=== PATIENT | female | born 1955 | race Caucasian/White ===

== ENCOUNTER 2017-12-31 08:12 | Emergency (ER) | payer BC, SELFPAY ==
[2017-12-31 08:17] VITALS: BP 134/74; PULSE 75; RESP 16; TEMP 36.8; O2SAT 97
--- NOTE | 2017-12-31 08:58 | W.ED.GENAD ---
Discharge Plan Disposition Patient Disposition: HOME Condition: Stable Discharge Details Chief Complaint: Nk/Back Pain Clinical Impression: Acute flank pain, Constipation Reason For Visit: FELICIANO Primary Care Provider: Fredo Alejandro ED Provider: Katarina Sanders Home Meds and New Rx's Prescriptions: Continue amitriptyline 50 MG tablet 50 mg PO DAILY Qty: 90 RF: 4 Discharge Instructions Additional Instructions: Please return to the emergency department if you develop any new or worsening symptoms or if you become otherwise concerned. It is extremely important that you make an appointment to be seen in follow-up this visit by her primary care doctor within the next 1-2 weeks. Referrals: Fredo Alejandro MD [Primary Care Provider] - Discharge Data Discharge Date/Time-TO BE ENTERED AT DEPARTURE: 12/31/17 13:38 Medical Decision Making Rodney Amaro is a 62 y/o woman with history of anxiety and no other major medical problems presenting to the emergency department with right-sided flank pain radiating into the right lower abdomen since yesterday, history of two-week constipation until taking medication last night after which she had a bowel movement that did not alleviate pain. On exam patient is well and nontoxic appearing. She is nontender over the right flank in the reported area of pain, but does have mild tenderness in the right inguinal area. Exam is otherwise unremarkable. Concern for possible ileus versus obstruction versus UTI versus stone versus other. Exam/history not consistent with appendicitis, sepsis. It is allergic to IV dye. Plan for screening labs, IV fluid hydration, CT of the abdomen pelvis with barium oral contrast. Patient declines pain medication at this time. CT okay. Patient reports that she had a small bowel movement that was light brown in color with a streak of bright red blood. Patient reports that she occasionally has had the same in the past with bowel movements. Suspect secondary to hemorrhoids. I do not suspect significant GI bleed at this time. Unclear etiology of pain at this time, however patient reports pain resolved at this point she feels well and ready to go home. Lengthy discussion with patient regarding return to emergency department precautions and importance of outpatient follow-up with her PCP. She is amenable to the plan. Medical Records Medical records reviewed: Yes I reviewed the patient's medical records. Imaging Data Radiologic Study: Attestation: I personally reviewed and interpreted this imaging study as follows: Radiologist's impression: ABDOMINAL AND PELVIC CT: CT examination of the abdomen and pelvis was performed with oral contrast only due to the patient's reported contrast allergy. Images obtained through the lung bases are unremarkable. Liver and spleen appear normal by noncontrast criteria, as does the pancreas. Gallbladder and bile ducts are CT normal. Adrenals and kidneys are unremarkable in appearance with no evidence of urinary tract calcification or obstruction. No significant abdominal wall hernia seen. No abdominal or pelvic adenopathy seen. Appendix appears normal. No evidence of diverticulitis. There is ingested contrast throughout the bowel to the level of the distal descending colon. FILM PROCESSOR structures appear intact by CT criteria. CONCLUSION: Negative abdominal and pelvic CT. Lab Data Lab results reviewed: Yes I reviewed the patient's lab results. HPI General Mode of arrival: EMS. Date/Time Provider Initiated Documentation: 12/31/17 08:53. Limitations to Documentation: no limitations. Information obtained by: patient, family, RN notes reviewed and old records reviewed. HPI Narrative: Rodney Amaro is a 62-year-old woman with history of anxiety and constipation presenting to the emergency department with right-sided flank pain. Patient reports that yesterday she developed sharp pain in her right lower back/flank. She has had this pain of same location and quality many times in the past, and see if she associates it with constipation. She took Ex-Lax last night and had 2 large bowel movements. Patient reports that her pain however, has been unchanged, which is not typical for her. This type of pain is usually resolved after having a bowel movement. Patient reports that she had not had a bowel movement in 2 weeks prior to taking meds last night. This is not unusual for her. Patient reports that pain is 6 out of 10, and radiates from the right flank into the right lower abdomen. Pain is much worse with movement. She denies having any other pain. She denies fevers, vomiting, shortness of breath, cough, numbness/tingling/weakness. 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 No history of abdominal surgery or obstruction. Previously in her usual state of health. No trauma. Related Data Home Medications Medication Instructions Recorded Confirmed amitriptyline 50 mg PO DAILY #90 tab 04/06/17 12/31/17 Previous Rx's Medication Instructions Recorded amitriptyline 50 mg PO DAILY #90 tab 04/06/17 Allergies Allergy/AdvReac Type Severity Reaction Status Date / Time acetaminophen [From Tylenol] AdvReac Severe liver Unverified 12/31/17 08:21 issues IV DYE Allergy Severe Swelling/Ed Uncoded 12/31/17 08:21 aleah General Stated Complaint: Nk/Back Pain ROSSY: 3 Review of Systems Review of Systems Constitutional: denies fevers Eyes: denies eye pain ENT: denies facial pain, dental pain, sore throat Cardiovascular: denies chest pain, edema Respiratory: denies SOB, cough GI: reports abdominal pain, constipation, denies vomiting, diarrhea : reports flank pain, dysuria, frequency, urinary hesitancy MSK: denies back pain, neck pain, arthralgias, myalgias Skin: denies rash Neuro: denies headaches, lightheadedness, weakness PFSH Family History Mother Diabetes Neoplasm Father Diabetes Heart disease Hyperlipidemia Brother Diabetes Grandfather Diabetes Neoplasm Grandfather Neoplasm Grandmother Heart disease Grandmother No problems noted. Son Depression Daughter Depression Medical History Insomnia Migraine with aura Panic disorder Social History Smoking/Tobacco Use Status: Never Surgical History Appendectomy Bunionectomy (07/21/15) Colonoscopy - IV Sedation (08/30/15) Exam Narrative Exam Narrative: Constitutional: well and [id number], pleasant, conversing normally HENT: head atraumatic, normocephalic normal inspection, mucous membranes moist Eyes: conjunctiva normal, sclera normal, pupils 3mm b/l Neck: no stridor, normal ROM, trachea midline Chest: normal inspection Resp: normal work of breathing, LCTAB Cardio: normal rate, normal rhythm, no murmur appreciated GI: abdomen soft, non-distended, right lower quadrant TTP diffusely, neg McBPt TTP, no rebound or guarding, negative CVA tenderness b/l Back: normal inspection, no rash Skin: warm, dry, normal color, no rash Neuro: alert, not altered, grossly non-focal, normal tone Ext: no edema Psych: normal mood, normal affect, normal behavior Course Vital Signs Temperature 36.8 C 12/31/17 08:17 Pulse 75 12/31/17 08:17 Respiratory Rate 16 12/31/17 08:17 Blood Pressure 134/74 12/31/17 08:17 Pulse Oximetry 97 12/31/17 08:17 Temperature 36.8 C 12/31/17 08:17 Temperature Source Temporal Artery Scan 12/31/17 08:17 Pulse 75 12/31/17 08:17 Respiratory Rate 16 12/31/17 08:17 Respiratory Effort Non-Labored 12/31/17 08:20 Blood Pressure 134/74 12/31/17 08:17 Blood Pressure Position Sitting 12/31/17 08:17 Pulse Oximetry 97 12/31/17 08:17 Oxygen Delivery Method Room Air 12/31/17 08:17 Oxygen Flow Rate 0 12/31/17 08:17 Pain Level 5 12/31/17 08:41
--- NOTE | 2017-12-31 09:08 | ED.GENADUL_ITS ---
Discharge Plan Disposition Patient Disposition: HOME Condition: Stable Discharge Details Chief Complaint: Nk/Back Pain Clinical Impression: Acute flank pain, Constipation Reason For Visit: FELICIANO Primary Care Provider: Fredo Alejandro ED Provider: Katarina Sanders Home Meds and New Rx's Prescriptions: Continue amitriptyline 50 MG tablet 50 mg PO DAILY Qty: 90 RF: 4 Discharge Instructions Additional Instructions: Please return to the emergency department if you develop any new or worsening symptoms or if you become otherwise concerned. It is extremely important that you make an appointment to be seen in follow-up this visit by her primary care doctor within the next 1-2 weeks. Referrals: Fredo Alejandro MD [Primary Care Provider] - Discharge Data Discharge Date/Time-TO BE ENTERED AT DEPARTURE: 12/31/17 13:38 Medical Decision Making Rodney Amaro is a 62 y/o woman with history of anxiety and no other major medical problems presenting to the emergency department with right-sided flank pain radiating into the right lower abdomen since yesterday, history of two- week constipation until taking medication last night after which she had a bowel movement that did not alleviate pain. On exam patient is well and nontoxic appearing. She is nontender over the right flank in the reported area of pain, but does have mild tenderness in the right inguinal area. Exam is otherwise unremarkable. Concern for possible ileus versus obstruction versus UTI versus stone versus other. Exam/history not consistent with appendicitis, sepsis. It is allergic to IV dye. Plan for screening labs, IV fluid hydration , CT of the abdomen pelvis with barium oral contrast. Patient declines pain medication at this time. CT okay. Patient reports that she had a small bowel movement that was light brown in color with a streak of bright red blood. Patient reports that she occasionally has had the same in the past with bowel movements. Suspect secondary to hemorrhoids. I do not suspect significant GI bleed at this time. Unclear etiology of pain at this time, however patient reports pain resolved at this point she feels well and ready to go home. Lengthy discussion with patient regarding return to emergency department precautions and importance of outpatient follow-up with her PCP. She is amenable to the plan. Medical Records Medical records reviewed: Yes I reviewed the patient's medical records. Imaging Data Radiologic Study: Attestation: I personally reviewed and interpreted this imaging study as follows: Radiologist's impression: ABDOMINAL AND PELVIC CT: CT examination of the abdomen and pelvis was performed with oral contrast only due to the patient's reported contrast allergy. Images obtained through the lung bases are unremarkable. Liver and spleen appear normal by noncontrast criteria, as does the pancreas. Gallbladder and bile ducts are CT normal. Adrenals and kidneys are unremarkable in appearance with no evidence of urinary tract calcification or obstruction. No significant abdominal wall hernia seen. No abdominal or pelvic adenopathy seen. Appendix appears normal. No evidence of diverticulitis. There is ingested contrast throughout the bowel to the level of the distal descending colon. RN CONCURRENT REVIEW structures appear intact by CT criteria. CONCLUSION: Negative abdominal and pelvic CT. Lab Data Lab results reviewed: Yes I reviewed the patient's lab results. HPI General Mode of arrival: EMS . Date/Time Provider Initiated Documentation: 12/31/17 08:53 . Limitations to Documentation: no limitations . Information obtained by: patient, family, RN notes reviewed and old records reviewed . HPI Narrative: Rodney Amaro is a 62-year-old woman with history of anxiety and constipation presenting to the emergency department with right-sided flank pain. Patient reports that yesterday she developed sharp pain in her right lower back/flank. She has had this pain of same location and quality many times in the past, and see if she associates it with constipation. She took Ex- Lax last night and had 2 large bowel movements. Patient reports that her pain however, has been unchanged, which is not typical for her. This type of pain is usually resolved after having a bowel movement. Patient reports that she had not had a bowel movement in 2 weeks prior to taking meds last night. This is not unusual for her. Patient reports that pain is 6 out of 10, and radiates from the right flank into the right lower abdomen. Pain is much worse with movement. She denies having any other pain. She denies fevers, vomiting, shortness of breath, cough, numbness/tingling/weakness. 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 No history of abdominal surgery or obstruction. Previously in her usual state of health. No trauma. Related Data Home Medications Medication Instructions Recorded Confirmed amitriptyline 50 mg PO DAILY #90 tab 04/06/17 12/31/17 Previous Rx's Medication Instructions Recorded amitriptyline 50 mg PO DAILY #90 tab 04/06/17 Allergies Allergy/AdvReac Type Severity Reaction Status Date / Time acetaminophen [From Tylenol] AdvReac Severe liver Unverified 12/31/17 08:21 issues IV DYE Allergy Severe Swelling/Ed Uncoded 12/31/17 08:21 aleah General Stated Complaint: Nk/Back Pain ROSSY: 3 Review of Systems Review of Systems Constitutional: denies fevers Eyes: denies eye pain ENT: denies facial pain, dental pain, sore throat Cardiovascular: denies chest pain, edema Respiratory: denies SOB, cough GI: reports abdominal pain, constipation, denies vomiting, diarrhea : reports flank pain, dysuria, frequency, urinary hesitancy MSK: denies back pain, neck pain, arthralgias, myalgias Skin: denies rash Neuro: denies headaches, lightheadedness, weakness PFSH Family History Mother Diabetes Neoplasm Father Diabetes Heart disease Hyperlipidemia Brother Diabetes Grandfather Diabetes Neoplasm Grandfather Neoplasm Grandmother Heart disease Grandmother No problems noted. Son Depression Daughter Depression Medical History Insomnia Migraine with aura Panic disorder Social History Smoking/Tobacco Use Status: Never Surgical History Appendectomy Bunionectomy (07/21/15) Colonoscopy - IV Sedation (08/30/15) Exam Narrative Exam Narrative: Constitutional: well and [id number], pleasant, conversing normally HENT: head atraumatic, normocephalic normal inspection, mucous membranes moist Eyes: conjunctiva normal, sclera normal, pupils 3mm b/l Neck: no stridor, normal ROM, trachea midline Chest: normal inspection Resp: normal work of breathing, LCTAB Cardio: normal rate, normal rhythm, no murmur appreciated GI: abdomen soft, non-distended, right lower quadrant TTP diffusely, neg McBPt TTP, no rebound or guarding, negative CVA tenderness b/l Back: normal inspection, no rash Skin: warm, dry, normal color, no rash Neuro: alert, not altered, grossly non-focal, normal tone Ext: no edema Psych: normal mood, normal affect, normal behavior Course Vital Signs Temperature 36.8 C 12/31/17 08:17 Pulse 75 12/31/17 08:17 Respiratory Rate 16 12/31/17 08:17 Blood Pressure 134/74 12/31/17 08:17 Pulse Oximetry 97 12/31/17 08:17 Temperature 36.8 C 12/31/17 08:17 Temperature Source Temporal Artery Scan 12/31/17 08:17 Pulse 75 12/31/17 08:17 Respiratory Rate 16 12/31/17 08:17 Respiratory Effort Non-Labored 12/31/17 08:20 Blood Pressure 134/74 12/31/17 08:17 Blood Pressure Position Sitting 12/31/17 08:17 Pulse Oximetry 97 12/31/17 08:17 Oxygen Delivery Method Room Air 12/31/17 08:17 Oxygen Flow Rate 0 12/31/17 08:17 Pain Level 5 12/31/17 08:41
[2017-12-31] MEDS: Normal Saline 1,000 ML 1000 ML IV (09:11)
[2017-12-31 09:16] LABS: Abs Immature Grans 0.01 k/cumm (0.0-0.09); Absolute Basophil Count 0.04 k/cumm (0.0-0.2); Absolute Eosinophil Count 0.25 k/cumm (0.0-0.7); Absolute Lymphocyte Count 1.27 k/cumm (1.2-3.4); Absolute Monocyte Count 0.43 k/cumm (0.11-0.7); Absolute Neutrophil Count 3.32 k/cumm (1.2-6.7); Basophils % 0.8; Eosinophils % 4.7; HCT 41.8 % (36.0-46.0); HGB 13.9 g/dL (12.0-15.5); Immature Grans % 0.2; Lymphocytes % 23.9; Mean Corp. HGB Concentration 33.3 g/dL (32.0-36.0); Mean Corpuscular Hemoglobin 31.9 pg (27.0-33.0); Mean Corpuscular Volume 95.9 fL (80-95); Mean Platelet Volume 11.5 fL (8.0-11.0); Monocytes % 8.1; Neutrophils % 62.3; Platelet Count 192 x1000/uL (130-400); RBC 4.36 m/cumm (4.00-5.20); RBC Distribution Width 12.6 % (11.7-14.6); White Blood Cell Count 5.32 k/cumm (4.4-10.8)
[2017-12-31 09:32] LABS: ALT 35 U/L (12-78); AST 20 U/L (15-37); Albumin 3.3 g/dL (3.4-5.0); Alkaline Phosphatase 78 U/L (46-116); Anion Gap 4.9 mmol/L (3-11); BUN 12 mg/dL (7-18); Bilirubin, Total 0.3 mg/dL (0.2-1.0); CO2 29.1 mmol/L (21.0-32.0); CREATININE 0.86 mg/dL (0.55-1.02); Calcium 8.9 mg/dL (8.5-10.1); Chloride 106 mmol/L (98-107); Glucose 99 mg/dL (70-100); Potassium 4.4 mmol/L (3.5-5.1); Sodium 140 mmol/L (136-145); Total Protein 7.4 g/dL (6.4-8.2)
[2017-12-31 09:56] LABS: Bilirubin Negative (Negative); Blood Negative (Negative); Clarity Clear; Glucose Negative (Negative); Ketones Negative (Negative); Leukocyte Esterase Negative (Negative); Nitrite Negative (Negative); Urobilinogen 0.2 EU/dL (Up TO 0.2)
[2017-12-31 13:36] VITALS: BP 133/79; PULSE 73; RESP 18; TEMP 37.2; O2SAT 97
== END 2017-12-31 13:38 | disposition home or self-care (01) ==
PROVIDERS: Emergency Provider Student in an Organized Health Care Education/Training Program; PCP Family Medicine
DX: R10.31 Right lower quadrant pain (principal); K59.00 Constipation, unspecified; Z91.041 Radiographic dye allergy status; Z87.440 Personal history of urinary (tract) infections
CPT/HCPCS: 36415; 80053; 96360; 99284; 74176; 81003; 85025

== ENCOUNTER 2018-04-25 00:54 | Outpatient (CLI) | payer BC, SELFPAY ==
--- NOTE | 2018-04-25 08:30 | DI.MAMMO_ITS ---
SYMPTOM/DIAGNOSIS: SCREENING, Z12.31 MAMMOGRAMS: Mammograms were interpreted according to the usual protocol including computer analysis with CAD system, tomosynthesis and C view imaging. Comparison with prior examinations. Breast density B. No suspicious masses or microcalcifications are seen. There is no definite evidence of malignancy. IMPRESSION: Category 1 -B. Negative mammogram. Routine screening is recommended. SA ASSESSMENT OF FINDINGS: Negative. Category 1. Patient will receive a letter notifying them of these results. BI-RADS category B. There are scattered areas of fibroglandular density.
== END 2018-04-25 01:14 ==
PROVIDERS: PCP Family Medicine; Visit Provider Family Medicine
DX: Z12.31 Encounter for screening mammogram for malignant neoplasm of breast (principal)
CPT/HCPCS: 77063; 77067

== ENCOUNTER 2019-04-15 12:30 | Outpatient (REF) | payer BC, SELFPAY ==
--- NOTE | 2019-04-15 11:30 | PAPFT_PTH ---
PATIENT: Rodney Amaro LOC: [facility] U#:[id number] AGE/SX: 63/F ROOM: RE04/15/[address]: Fredo Alejandro MD : [id number] BED: DIS: 04/15/2019 SPEC #: [id number] RECD: 04/16/19 12:47 STATUS: VIVIANA REQ #: [id number] KORINA: 04/15/19 11:[address]: Fredo Alejandro DEPT: [facility] Cytology RECD BY: La Zheng Tissues: 1 - CX/ENDOCX FOR PAP SMEARS Procedures: PAP THIN PREP/UVM Screening HPV DNA PROBE Comments: [id number]
== END 2019-04-15 12:50 ==
LOC: LBN 12:30
PROVIDERS: PCP Family Medicine; Visit Provider Family Medicine
DX: Z12.4 Encounter for screening for malignant neoplasm of cervix (principal); Z11.51 Encounter for screening for human papillomavirus (HPV)
CPT/HCPCS: 88142; 87624

== ENCOUNTER 2019-04-17 01:43 | Outpatient (CLI) | payer BC, SELFPAY ==
--- NOTE | 2019-04-17 09:00 | DI.RAD_ITS ---
EXAM: RF BARIUM SWALLOW CLINICAL HISTORY: dysphagia R13.10 TECHNIQUE: 2D and realtime digital imaging was performed. Fluoro time: 01.33 sec CONTRAST MATERIAL: Oral barium contrast was administered. COMPARISON: No exams were available for comparison FINDINGS: The initial plain film of the chest shows that the heart and pulmonary vasculature are within normal limits. The lungs are clear. There is an S-type scoliotic curvature of the thoracolumbar spine. Esophagus: The esophagus is patent with no evidence for erosions, fold thickening, strictures, or ma sses. With regards to the motility, there is a normal primary stripping wave. Tertiary contractions a re identified. There is a small hiatal hernia. No gastroesophageal reflux is identified. The patie nt was able to swallow a barium tablet without difficulty. IMPRESSION: Small hiatal hernia. No evidence of gastroesophageal reflux.
[2019-04-17] MEDS: Barium Sulfate 60% W/V 355 ML BTL PO (11:02)
[2019-04-17] MEDS: Simethicone/Sod Bicarb/Cit Ac, 4 gram PACKET 1 PACKET PO (11:04)
[2019-04-17 12:01] LABS: Anion Gap 6.6 mmol/L (3-11); BUN 17 mg/dL (7-18); CO2 30.4 mmol/L (21.0-32.0); CREATININE 0.85 mg/dL (0.55-1.02); Calculated LDL 154 mg/dL (<100); Chloride 104 mmol/L (98-107); Cholesterol 242 mg/dL (<200); Glucose 90 mg/dL (74-106); HDL Cholesterol 73 mg/dL (40-60); Potassium 4.3 mmol/L (3.5-5.1); Sodium 141 mmol/L (136-145); Triglyceride 78 mg/dL (<150)
== END 2019-04-17 02:03 ==
PROVIDERS: PCP Family Medicine; Visit Provider Family Medicine
DX: Z00.00 Encounter for general adult medical examination without abnormal findings (principal); R13.10 Dysphagia, unspecified; K44.9 Diaphragmatic hernia without obstruction or gangrene; Z13.220 Encounter for screening for lipoid disorders
CPT/HCPCS: 36415; 80048; 80061; 74221; J3490

== ENCOUNTER 2019-07-01 14:49 | Emergency (ER) | payer BC, SELFPAY ==
[2019-07-01] VITALS (40 sets, daily range): BP systolic 98–154; BP diastolic 69–99; PULSE 65–78; RESP 9–32; TEMP 36.7; O2SAT 96–98
--- NOTE | 2019-07-01 15:15 | DI.RAD_ITS ---
EXAM: XR CHEST 2V PA LATERAL CLINICAL HISTORY: chest pain TECHNIQUE: 2D digital imaging was performed. COMPARISON: No exams were available for comparison FINDINGS: MEDIASTINUM: Normal. HEART: Normal. PULMONARY VASCULATURE: Normal. LUNGS: Clear. PLEURAL SPACE: No pleural effusion or pneumothorax. BONE:Normal. OTHER FINDINGS:Normal. IMPRESSION: No acute pulmonary findings. DATA REPOSITORY: RADIATION DOSE DELIVERED:
--- NOTE | 2019-07-01 15:17 | ED.GENADUL_ITS ---
Discharge Plan Disposition Patient Disposition: HOME Condition: Stable Discharge Details Chief Complaint: Chest Pain Clinical Impression: Chest pain Primary Care Provider: Valentín Rogers ED Provider: Timbo Sanders Home Meds and New Rx's Prescriptions: Continued amitriptyline 50 mg tablet 50 mg PO HS RF: 0 Discharge Instructions Instructions: Chest Pain (ED), Gastroesophageal Reflux Disease (ED) Additional Instructions: No exertional activities until cleared by your primary doctor. Patient had a stress test performed ideally within the next 72 hours. Please schedule this outpatient procedure. Please contact your primary care physician to arrange follow-up. Call tomorrow. Return to the ER for any worsening or new concerning symptoms. Referrals: Valentín Rogers [Primary Care Provider] - Medical Decision Making 4??63-year-old female history of GERD here with brief episode of chest discomfort after eating green apple. Patient is hemodynamically stable and currently pain-free. Suspect gastric reflux disease. Offered Pepcid and patient declined. Consider ACS. Screening ECG was reviewed and interpreted by me: Sinus rhythm normal axis, no STEMI, nondiagnostic. I will send troponin and plan for delta troponin if initial negative. --Labs reviewed initial troponin negative. 1900??patient reassessed multiple times. She remains chest pain-free. Patient remains stable. Repeat ECG was reviewed and interpreted by me: Sinus rhythm 68 bpm, normal axis, no STEMI, nondiagnostic. Repeat labs reviewed and troponin negative. Plan for discharge with outpatient PCP follow-up. Will order outpatient stress test to expedite outpatient work-up. Disposition decision was made weighing the risks and benefits of hospitalization versus outpatient treatment, the risk for further decompensation, and the patient's wishes. The patient was stable and requested discharge. Prior to discharge, my usual and customary return precautions were reviewed with Ms. Amaro- this included follow-up instructions and reason to return to the emergency department if condition worsens, does not improve as expected, or other new concerns arise. HPI General Mode of arrival: ambulatory . Date/Time Provider Initiated Documentation: 07/01/19 14:52 . Limitations to Documentation: no limitations . Information obtained by: patient . HPI Narrative: 63-year-old female presents chief complaint of chest discomfort. Patient notes she experienced rather sudden onset of chest discomfort localized to central substernal chest that started about 45 minutes to an hour ago and lasted approximately 15 minutes. Discomfort felt like a pressure. She states pain came on after eating a green apple. She is currently pain-free. Pain did not radiate. No associated nausea or vomiting. No associated shortness of breath. No associated leg swelling or calf pain. No recent immobility. Patient denies cough, fever, or recent travel. Patient does state that over the past week she is felt a little weird but cannot further characterize. Related Data Home Medications Medication Instructions Recorded Confirmed amitriptyline 50 mg PO HS 07/01/19 07/01/19 Allergies Allergy/AdvReac Type Severity Reaction Status Date / Time acetaminophen [From Tylenol] AdvReac Severe liver Unverified 07/01/19 15:02 issues IV DYE Allergy Severe Swelling/Ed Uncoded 07/01/19 15:02 aleah General Stated Complaint: Chest Pain ROSSY: 2 Review of Systems All systems reviewed & are unremarkable except as noted in HPI and below Constitutional Constitutional: Denies fever(s) Cardiovascular Cardiovascular: Reports as per HPI [facility] Medical History Insomnia Migraine with aura Panic disorder Surgical History Appendectomy Bunionectomy (07/21/15) Left DR. LY ALSO LEFT 2ND RAY [place] CORRECTION Colonoscopy - IV Sedation (08/30/15) Family History Mother , 62 Diabetes Lung cancer Father , 61 Diabetes Heart disease Hyperlipidemia Brother Diabetes Maternal Grandfather , 70s Diabetes Brain cancer Lung cancer Paternal Grandfather , 70s Liver cancer Maternal Grandmother , 66 Heart disease HEART VALVE REPAIR Paternal Grandmother , 89 No problems noted. Son Depression Daughter Depression Sister , 3 days old No problems noted. Social History Smoking/Tobacco Use Status: Former Tobacco Use Quit Date: 02/12/79 Alcohol Intake: current Alcohol Intake frequency: a few times a week Alcohol type: wine Drug use: Never Substance use type: does not use Caregiver/Support person: No Household members: spouse Housing: house Communication Needs: None Pets and animals: No Sexually active: Yes Do you think of yourself as: straight/heterosexual Current gender identity: female What is your relationship status?: How often do you talk on the phone with friends or family?: twice per week How often do you get together with friends or relatives?: once per week How often do you attend zoroastrianism or adventism services?: decline to answer Do you belong to any clubs or organized social groups?: yes Panel score (0-1 are the most socially isolated patients): 3 What type of physical activity do you participate in: other Details: bowling Duration: 60-90 minutes/day Frequency: 1-2 times per week Amanda/Mu-Ism: Temple Special amanda needs: No Seatbelt use: always Helmet use: Yes Helmet use: always 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 Do you feel safe at home: Yes Do you feel safe in your relationship?: Yes Exam Const General: cooperative and no acute distress HENMT Mouth: moist mucous membranes Eyes Sclera: normal sclerae Neck Neck: trachea midline and supple Resp Auscultation: clear to auscultation bilaterally, no rales, no rhonchi and no wheezes Cardio Jugular venous pressure: no JVD Rate: regular rate and not tachycardic Rhythm: regular rhythm GI Palpation: soft, not firm, no guarding, no masses, not rigid and nontender Skin General skin exam: no rashes or lesions noted Neuro General: patient alert, patient awake and tone normal Extrem General: no calf tenderness and no edema Psych Appearance: grossly normal Mental Status: mental status grossly normal Course Vital Signs Vital signs: Vital Signs Temperature 36.7 C 07/01/19 14:54 Pulse 78 07/01/19 14:54 Pulse Oximetry 96 07/01/19 14:54 Temperature 36.7 C 07/01/19 14:54 Temperature Source Skin 07/01/19 14:54 Pulse 78 07/01/19 14:54 Respiratory Rate 15 07/01/19 14:57 Respiratory Effort Non-Labored 07/01/19 14:57 Respiratory Depth Normal 07/01/19 14:57 Respiratory Pattern Normal 07/01/19 14:57 Blood Pressure Position Supine 07/01/19 14:54 Pulse Oximetry 96 07/01/19 14:54 Oxygen Delivery Method Room Air 07/01/19 14:54 Oxygen Flow Rate 0 07/01/19 14:54 Pain Level 0 07/01/19 14:54
[2019-07-01 15:26] LABS: Abs Immature Grans 0.01 k/cumm (0.0-0.09); Absolute Basophil Count 0.03 k/cumm (0.0-0.2); Absolute Eosinophil Count 0.17 k/cumm (0.0-0.7); Absolute Lymphocyte Count 1.73 k/cumm (1.2-3.4); Absolute Monocyte Count 0.39 k/cumm (0.11-0.7); Absolute Neutrophil Count 2.65 k/cumm (1.2-6.7); Basophils % 0.6; Eosinophils % 3.4; HGB 13.5 g/dL (12.0-15.5); Immature Grans % 0.2 %; Lymphocytes % 34.7; Mean Corp. HGB Concentration 33.8 g/dL (32.0-36.0); Mean Corpuscular Hemoglobin 31.6 pg (27.0-33.0); Mean Corpuscular Volume 93.7 fL (80-95); Mean Platelet Volume 11.6 fL (8.0-11.0); Monocytes % 7.8; Neutrophils % 53.3; Platelet Count 203 x1000/uL (130-400); RBC 4.27 m/cumm (4.00-5.20); RBC Distribution Width 12.5 % (11.7-14.6); White Blood Cell Count 4.98 k/cumm (4.4-10.8)
[2019-07-01 15:44] LABS: ALT 38 U/L (14-59); AST 26 U/L (15-37); Albumin 3.5 g/dL (3.4-5.0); Alkaline Phosphatase 69 U/L (46-116); Anion Gap 7.2 mmol/L (3-11); BUN 13 mg/dL (7-18); Bilirubin, Total 0.3 mg/dL (0.2-1.0); CO2 28.8 mmol/L (21.0-32.0); CREATININE 0.93 mg/dL (0.55-1.02); Calcium 9.3 mg/dL (8.5-10.1); Chloride 102 mmol/L (98-107); Glucose 98 mg/dL (74-106); Potassium 4.1 mmol/L (3.5-5.1); Sodium 138 mmol/L (136-145); Total Protein 7.7 g/dL (6.4-8.2)
[2019-07-01 15:45] LABS: Troponin I < 0.05 ng/Ml (<0.06)
[2019-07-01 18:41] LABS: Troponin I < 0.05 ng/Ml (<0.06)
--- NOTE | 2019-07-01 23:23 | NUR.NOTE ---
referral faxed t patient PCP for follow up care Nursing Note:
== END 2019-07-01 19:01 | disposition home or self-care (01) ==
PROVIDERS: Emergency Provider Student in an Organized Health Care Education/Training Program; PCP Family Medicine
DX: R07.89 Other chest pain (principal); K21.9 Gastro-esophageal reflux disease without esophagitis
CPT/HCPCS: 36415; 80053; 93005; 99285; 71046; 84484; 85025; 93010

== ENCOUNTER 2019-07-08 00:18 | Outpatient (CLI) | payer BC, SELFPAY ==
--- NOTE | 2019-07-08 10:00 | ETT_ITS ---
APPROVED REPORT Exam: Exercise Treadmill Patient Location: Out-Patient Room/Bed: Stress Nurse: Flora Montalvo RN BMI: 37.19 Baseline Rhythm: Sinus Rhythm Indications: Patient presented to the ED on 07/01/2019 for chest ???heaviness??? with radiation down l eft arm (left arm felt heavy and ached). Patient reports this happened after eating a green apple, an d had a similar episode approximately 5 years ago after eating a green apple. Medical History Medical History: GERD, Panic Disorder. Cardiac Medications: No cardiac medications per patient. Allergies: Tylenol, IV dye. Cardiac Risk Factors: FHX of CAD Previous Cardiac Procedures: None Pretest Chest Pain Characteristics: None Exercise History: Sedentary Physical Disabilities: None Lung Sounds: Clear to auscultation Heart Sounds: Regular Stress Test Details Test: Exercise stress testing was performed using a Samy protocol. Rest Stress HR Resting HR Supine: 70 bpm Max Heart Rate (APMHR): 158 bpm Resting HR Standin bpm Target HR (85% APMHR): 134 bpm Max HR Achieved: 138 bpm % of APMHR: 87 HR response to stress: Normal HR response to stress. BP Resting BP Supine: 112/64 mmHg Resting BP Standin/62 mmHg Max BP: 158/68 mmHg BP response to stress: Normal blood pressure response to stress. ECG Resting ECG: Sinus Rhythm Stress ECG: Sinus Tachycardia ST Change: Normal Maximum ST Deviation: 1.2 mm Arrhythmia: None Recovery ECG: Sinus Rhythm Recovery ST Change: Normal Recovery Arrhythmia: None Clinical Reason for Termination: Fatigue Stress Symptoms: None reported per patient. Exercise duration: 7 min40 sec Highest Stage Reached: Stage 3: 3.4 mph at 14% grade. Exercise capacity: 9.61 METs Functional Capacity: Average Capacity Stress ECG Conclusion 1. Patient exercised for 7 minutes 40 seconds (10 METS). 2. The patient reached 87% of maximal predicted heart rate. Rate-pressure product was 20,000. 3. There are no symptom suggestive of ischemia 4. There is no evidence of ischemia on the ECG portion exam. 5. The Blair Score ( 8) estimates an annual cardiovascular mortality of 0% and a five year survival of 95%. Using the Blair Score there is a low probability of any angiographic coronary disease. Stress Test Summary STAGE Time (mins) Speed (mph) Grade (%) HR BP SYMPTOMS METS Supine 70 112/64 Standing 78 118/62 1 3 1.7 10 110 130/60 4.6 2 6 2.5 12 125 148/58 7 1 min recovery 128 158/62 3 min recovery 98 150/62 6 min recovery 84 122/68
== END 2019-07-08 00:38 ==
PROVIDERS: PCP Family Medicine; Visit Provider Student in an Organized Health Care Education/Training Program
DX: R07.9 Chest pain, unspecified (principal); K21.9 Gastro-esophageal reflux disease without esophagitis; F41.0 Panic disorder [episodic paroxysmal anxiety]; Z82.49 Family history of ischemic heart disease and other diseases of the circulatory system
CPT/HCPCS: 93017

== ENCOUNTER 2019-10-28 15:08 | Emergency (ER) | payer BC, SELFPAY ==
--- NOTE | 2019-10-28 15:09 | W.ED.GENAD ---
Discharge Plan Disposition Patient Disposition: HOME Condition: Stable Discharge Details Clinical Impression: Laceration of thumb Primary Care Provider: Valentín Rogers ED Provider: Deepak Pardo Home Meds and New Rx's Prescriptions: No Action amitriptyline 50 mg tablet 50 mg PO HS RF: 0 Discharge Instructions Instructions: Laceration (ED) Additional Instructions: Leave the initial dressing on for the next 36 hours. At that time you may change it daily. I recommend an antibiotic nonstick compression dressing. [id number] medications as directed for discomfort. Please watch for new or worsening symptoms and return to the ER for any concerns. Medical Decision Making Patient presents for evaluation of a right thumb laceration. The laceration is an avulsion laceration, nothing to repair. Neuro, vascular, tendon intact. Will update tetanus and apply a nonstick bulky compression dressing with Gelfoam. Will first thoroughly clean and irrigate the laceration and then applied the dressing. Medical Records Medical records reviewed: Yes I reviewed the patient's medical records. HPI General Mode of arrival: ambulatory. Date/Time Provider Initiated Documentation: 10/28/19 15:08. Limitations to Documentation: no limitations. Information obtained by: patient. HPI Narrative: This is a 63-year-old female, [id number], presenting for evaluation of a right thumb laceration. She sustained the laceration just prior to arrival on a mandolin. Denies any other injury. Denies numbness, tingling, weakness. Patient reports her tetanus status was last updated in 2013. She reports minimal discomfort. No other concerns or complaints Related Data Home Medications Medication Instructions Recorded Confirmed amitriptyline 50 mg PO HS 07/01/19 10/21/19 Allergies Allergy/AdvReac Type Severity Reaction Status Date / Time acetaminophen [From Tylenol] AdvReac Severe liver Unverified 10/21/19 11:58 issues IV DYE Allergy Severe Swelling/Ed Uncoded 10/21/19 11:58 aleah General ROSSY: 2 Review of Systems Constitutional Constitutional: Denies fever(s) and Denies weakness Musculoskeletal Musculoskeletal: Denies arthralgias, Denies numbness and Denies tingling Integumentary/Breasts Skin/Breast: Denies erythema Neurologic Neurologic: Denies numbness, Denies tingling and Denies weakness [facility] Medical History (Updated 10/28/19 @ 15:18 by CAROL Ruelas) Insomnia Migraine with aura Panic disorder Surgical History Appendectomy Bunionectomy (07/21/15) Left DR. LY ALSO LEFT 2ND RAY [place] CORRECTION Colonoscopy - IV Sedation (08/30/15) Family History Mother , 62 Diabetes Lung cancer Father , 61 Diabetes Heart disease Hyperlipidemia Brother Diabetes Maternal Grandfather , 70s Diabetes Brain cancer Lung cancer Paternal Grandfather , 70s Liver cancer Maternal Grandmother , 66 Heart disease HEART VALVE REPAIR Paternal Grandmother , 89 No problems noted. Son Depression Daughter Depression Sister , 3 days old No problems noted. Social History Smoking/Tobacco Use Status: Former Tobacco Use Quit Date: 02/12/79 Alcohol Intake: current Alcohol Intake frequency: a few times a week Alcohol type: wine Drug use: Never Substance use type: does not use Caregiver/Support person: No Household members: spouse Housing: house Communication Needs: None Pets and animals: No Sexually active: Yes Do you think of yourself as: straight/heterosexual Current gender identity: female What is your relationship status?: How often do you talk on the phone with friends or family?: twice per week How often do you get together with friends or relatives?: once per week How often do you attend holiness or taoist services?: decline to answer Do you belong to any clubs or organized social groups?: yes Panel score (0-1 are the most socially isolated patients): 3 What type of physical activity do you participate in: other Details: bowling Duration: 60-90 minutes/day Frequency: 1-2 times per week Amanda/Orthodoxy: U[employer] Special amanda needs: No Seatbelt use: always Helmet use: Yes Helmet use: always 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 Do you feel safe at home: Yes Do you feel safe in your relationship?: Yes Exam Const General: cooperative, healthy appearing, comfortable and no acute distress Orientation: alert and awake HENMT Head: normal to inspection, normocephalic and atraumatic Mouth: moist mucous membranes Eyes Conjunctivae: conjunctivae normal Neck Neck: normal visual inspection, trachea midline and supple Resp Effort & Inspection: normal respiratory effort and able to speak in complete sentences Cardio Rate: regular rate Rhythm: regular rhythm Skin General skin exam: no rashes or lesions noted Neuro General: patient alert, patient awake, moves all extremities and no focal motor deficits Sensory Exam: no sensory deficits noted Extrem Hand/finger images: 1. 1.5 cm avulsion laceration, does not involve the nail. Minimal active trickle bleeding. No arterial bleed. No foreign body. Minimal discomfort. Neuro, vascular, tendon intact Psych Appearance: grossly normal Mental Status: mental status grossly normal
[2019-10-28 15:11] VITALS: BP 163/98; PULSE 81; RESP 18; TEMP 36.5; O2SAT 100
[2019-10-28] MEDS: Gelatin SPONGE 12-7 MM PKT 1 EACH TP (15:43)
== END 2019-10-28 15:36 | disposition home or self-care (01) ==
PROVIDERS: Emergency Provider Physician Assistant; PCP Family Medicine
DX: S61.011A Laceration without foreign body of right thumb without damage to nail, initial encounter (principal); W27.4XXA Contact with kitchen utensil, initial encounter; Y93.G1 Activity, food preparation and clean up
CPT/HCPCS: 90471; 99284; 99283

== ENCOUNTER 2020-03-01 19:32 | Outpatient (REF) | payer BC, SELFPAY | END 2020-03-01 19:52 | LOC: LBN 19:32 | PROVIDERS: PCP Family Medicine; Visit Provider Physician Assistant | DX: J02.9 Acute pharyngitis, unspecified (principal) | CPT/HCPCS: 87070 ==

== ENCOUNTER 2021-11-09 03:29 | Outpatient (CLI) | payer BC, SELFPAY ==
[2021-11-09 12:13] LABS: HCT 41.9 % (36.0-46.0); HGB 13.6 g/dL (11.2-15.7); MCH 31.4 pg (27.0-33.0); MCHC 32.5 % (32.0-36.0); MCV 97 fL (80-95); MPV 12.1 fL (8.0-11.0); Platelet Count 214 10^3/uL (130-400); RBC 4.33 10^6/uL (3.93-5.22); RDW 11.9 % (11.7-14.6); WBC 6.53 10^3/uL (4.4-10.8)
[2021-11-09 12:25] LABS: Calculated LDL 125 mg/dL (<100); Cholesterol 214 mg/dL (<200); HDL Cholesterol 73 mg/dL (40-60); Triglyceride 80 mg/dL (<150)
== END 2021-11-09 03:30 | disposition home or self-care (01) ==
LOC: LOS 03:32
PROVIDERS: Nurse Practitioner Family; PCP Family Medicine; Visit Provider Family Medicine
DX: R23.3 Spontaneous ecchymoses (principal); Z82.49 Family history of ischemic heart disease and other diseases of the circulatory system
CPT/HCPCS: 36415; 80061; 85027

== ENCOUNTER 2023-02-22 11:54 | Outpatient (CLI) | payer MEDICARE, SELFPAY ==
[2023-02-22 09:50] LABS: Anion Gap 4.6 mmol/L (3-11); BUN 13 mg/dL (7-18); CO2 28.4 mmol/L (21.0-32.0); CREATININE 0.8 mg/dL (0.55-1.02); Calcium 9.8 mg/dL (8.5-10.1); Chloride 106 mmol/L (98-107); Estimated GFR 81.21 (mL/min/1.73m2); Glucose 114 mg/dL (74-106); Potassium 4.1 mmol/L (3.5-5.1); Sodium 139 mmol/L (136-145)
== END 2023-02-22 11:55 | disposition home or self-care (01) ==
LOC: LBO 11:59
PROVIDERS: PCP Nurse Practitioner Family; Visit Provider Nurse Practitioner Family
DX: Z13.1 Encounter for screening for diabetes mellitus (principal)
CPT/HCPCS: 36415; 80048

== ENCOUNTER 2023-03-27 13:48 | Outpatient (CLI) | payer MEDICARE, SELFPAY ==
--- NOTE | 2023-03-27 13:45 | RT.EKG_ITS ---
APPROVED REPORT Exam: Resting ECG Reason for Exam: pulse irregularity Patient Location: O HR:97 bpm ECG Measurements Heart Rate 97 AXIS NJ 146 P 27 QRSd 155 QRS 12 QT 352 T 34 QTc 447 Conclusion Sinus rhythm...normal P axis, V-rate 50- 99 Normal Electrocardiogram
== END 2023-03-27 13:49 | disposition home or self-care (01) ==
LOC: DI.CM 13:48
PROVIDERS: PCP Nurse Practitioner Family; Visit Provider Family Medicine
DX: R09.89 Other specified symptoms and signs involving the circulatory and respiratory systems (principal)
CPT/HCPCS: 93010

== ENCOUNTER 2023-03-27 14:42 | Emergency (ER) | payer MEDICARE, SELFPAY ==
[2023-03-27] VITALS (85 sets, daily range): BP systolic 122–175; BP diastolic 71–92; PULSE 84–101; RESP 12–28; TEMP 36.5–36.8; O2SAT 89–99
--- NOTE | 2023-03-27 14:30 | RT.EKG_ITS ---
APPROVED REPORT Exam: Resting ECG Reason for Exam: abn EKG Patient Location: E HR:101 bpm ECG Measurements Heart Rate 101 AXIS DE 145 P 29 QRSd 78 QRS 33 QT 351 T 47 QTc 455 Conclusion Sinus tachycardia...rate> 99
--- NOTE | 2023-03-27 14:57 | ED.GENADUL_ITS ---
HPI General Mode of arrival: EMS . Date/Time Provider Initiated Documentation: 03/27/23 14:52 . Limitations to Documentation: no limitations . Information obtained by: patient, RN/MD and EMS . HPI Narrative: 67yo F with hx of depression presenting via EMS from PCP office with concern for abnormal EKG. History from patient, EMS, Dr. Brock. Patient presented to office for 1 month of 'shakiness', generalized weakness, and intermittent palpitations. Palpitations last a few minutes and feel like 'fluttering'. Feels tremors in her arms and legs, no clear provoking factors, happens both at rest and with activity. No chest pain or shortness of breath any point. Some nausea over the past two weeks after meals. No vomiting. Reports going to urgent care a month ago for swelling in her right leg which was thought to be positional/dependent edema. This has improved. She is otherwise in her usual state of health with no fevers, chills, rash, abdominal pain, syncope, focal weakness, or other concerns. Related Data Home Medications Medication Instructions Recorded Confirmed amitriptyline 50 mg tablet 50 mg PO QHS #90 tabs 12/09/22 03/27/23 apixaban 5 mg tablet (Eliquis) 10 mg (2 x 5 mg) PO BID #28 tabs 03/27/23 Previous Rx's Medication Instructions Recorded amitriptyline 50 mg tablet 50 mg PO QHS #90 tabs 12/09/22 apixaban 5 mg tablet (Eliquis) 10 mg (2 x 5 mg) PO BID #28 tabs 03/27/23 Allergies Allergy/AdvReac Type Severity Reaction Status Date / Time acetaminophen [From Tylenol] AdvReac Severe liver Verified 03/27/23 14:49 issues IV DYE Allergy Severe Swelling/Ed Uncoded 03/27/23 14:49 aleah General Stated Complaint: Palpitatns ROSSY: 3 Review of Systems Narrative: see HPI Exam Narrative Exam Narrative: General: Alert, well appearing, well nourished, in no acute distress. Head: Normocephalic, atraumatic Neck: Trachea midline, ?Neck supple. Cardiac: ?RRR, no murmurs appreciated Resp: No respiratory distress. CTAB. Abd: ?Soft, non-distended, nontender Extremities: ?No deformities.? No peripheral edema. BLE symmetric. Neurologic: GCS 15. ? Moves all extremities freely against gravity Course Vital Signs Vital signs: Vital Signs Temperature 36.5 C 03/27/23 14:42 Pulse 101 H 03/27/23 14:42 Respiratory Rate 18 03/27/23 14:42 Blood Pressure 175/92 H 03/27/23 14:42 Pulse Oximetry 96 03/27/23 14:42 Temperature 36.5 C 03/27/23 14:42 Temperature Source Skin 03/27/23 14:42 Pulse 101 H 03/27/23 14:42 Respiratory Rate 18 03/27/23 14:42 Respiratory Effort Normal 03/27/23 14:49 Blood Pressure 175/92 H 03/27/23 14:42 Pulse Oximetry 96 03/27/23 14:42 Oxygen Delivery Method Room Air 03/27/23 14:42 Oxygen Flow Rate 0 03/27/23 14:42 Medical Decision Making 67yo F with hx of depression presenting via EMS from PCP office with concern for abnormal EKG. History from patient, EMS, Dr. Brock. Patient presented to office for 1 month of 'shakiness', generalized weakness, and intermittent palpitations. No chest pain or shortness of breath any point. Reports going to urgent care a month ago for swelling in her right leg which was thought to be positional/dependent edema which has since improved. Hypertensive and slightly tachycardiac on arrival, benign physical exam. No indication of DVT on exam. EKG from office reviewed, sinus with rate in 90's, read by cardiology as normal. Repeat EKG here sinus tachycardia, appropriate intervals, no ST segment or T wave abnormalities to suggest occlusive LA. Labs reviewed as below, CBC & CMP reassuring with no anemia or electrolyte abnormalities. Troponin negative in the setting of one month of symptoms; would not further pursue acute coronary syndrome. TSH undetectable, T4 high at 3.81. Repeat vital signs normalized, 122/86, HR 84. Not thyroid storm. Suspect this is the etiology of patient's symptoms; further workup appropriate on an outpatient basis. Given history of unilateral LE swelling prior ot onset of symptoms, dimer sent and was markedly elevated at 3067. Patient with distant history of facial swelling with contrast dye injection; has not received IV contrast since the . Lower suspicion for pulmonary embolism however warrants imaging; unable to get VQ scan here. sPESI score 0, low risk. No significant risk factors for bleeding aside from age. Shared decision making with patient regarding risks/benefits of treating empirically; will start on eliquis and have close PCP followup for further workup and management. Discharged home; discharge instructions and return precautions were reviewed with patient who verbalized understanding. All questions were answered and she is in full agreement with the plan. Lab Data Lab results reviewed: Yes I reviewed the patient's lab results. Labs: Laboratory Tests Range/Units 03/27/23 14:50 WBC (4.4-10.8) 10^3/uL 3.95 L RBC (3.93-5.22) 10^6/uL 3.99 Hgb (11.2-15.7) g/dL 12.0 Hct (36.0-46.0) % 36.1 MCV (80-95) fL 91 MCH (27.0-33.0) pg 30.1 MCHC (32.0-36.0) % 33.2 RDW (11.7-14.6) % 11.2 L Plt Count (130-400) 10^3/uL 230 MPV (8.0-11.0) fL 11.2 H Immature Gran % 0.0 Neutrophils % 37.7 Lymphocytes % 42.8 Monocytes % 16.7 Eosinophils % 2.0 Basophils % 0.8 Nucleated RBC % (0.0-0.3) % 0.0 Absolute Neutrophils (1.2-6.7) 10^3/uL 1.49 Absolute Lymphocytes (1.2-3.4) 10^3/uL 1.69 Absolute Monocytes (0.1-0.8) 10^3/uL 0.66 Absolute Eosinophils (0.0-0.7) 10^3/uL 0.08 Absolute Basophils (0.0-0.2) 10^3/uL 0.03 D-Dimer (<500) ng/mlFEU 3067 H Sodium (136-145) mmol/L 142 Potassium (3.5-5.1) mmol/L 4.2 Chloride (98-107) mmol/L 105 Carbon Dioxide (21.0-32.0) mmol/L 29.4 Anion Gap (3-11) mmol/L 7.6 BUN (7-18) mg/dL 16 Creatinine (0.55-1.02) mg/dL 0.6 Est GFR (CKD-EPI 2020) (mL/min/1.73m2) 98.93 Glucose (74-106) mg/dL 106 Calcium (8.5-10.1) mg/dL 9.5 Total Bilirubin (0.2-1.0) mg/dL 0.3 AST (15-37) U/L 20 ALT (14-59) U/L 37 Alkaline Phosphatase (46-116) U/L 63 Troponin I (< or =60) ng/L < 50 Total Protein (6.4-8.2) g/dL 7.2 Albumin (3.4-5.0) g/dL 3.0 L TSH (0.36-3.74) uIU/mL < 0.01 L Free T4 (0.76-1.46) ng/dL 3.81 H Quality:SDOH Health Related Social Needs: No Data to Display PFSH All Active Problems (Updated 03/27/23 @ 17:[address] MD) Heart palpitations (Acute) Hyperthyroidism (Chronic) Tinea versicolor (Acute) Easy bruising (Acute) Family history of coronary artery disease in father (Acute) at age 60 Dysphagia (Acute) GERD (gastroesophageal reflux disease) (Chronic 10/01/14) managed by adjusting diet. Medical History Depressive disorder managed with amitriptyline Heart palpitations (10/01/14) event monitor negative in 2014 Postmenopausal bleeding (06/24/12) occurred once, no procedures. Panic disorder Migraine with aura managed with amitriptyline Surgical History Colonoscopy - IV Sedation (08/30/15) Bunionectomy (07/21/15) Left DR. LY ALSO LEFT 2ND RAY [facility]MERT[facility] CORRECTION Appendectomy Family History (Updated 03/27/23 @ 14:01 by Zohra Gross RN) Mother , 62 Diabetes Lung cancer Father , 61 Diabetes Heart disease Hyperlipidemia Brother Diabetes Maternal Grandfather , 70s Diabetes Brain cancer Lung cancer Paternal Grandfather , 70s Liver cancer Maternal Grandmother , 66 Heart disease HEART VALVE REPAIR Paternal Grandmother , 89 No problems noted. Son Depression Rhraa-Rlzpqdwwm-Naqsh syndrome Daughter Depression Sister , 3 days old No problems noted. Social History (Updated 12/11/22 @ 07:57 by Mony De Dios) Smoking/Tobacco Use Status: Former Tobacco Use tobacco type: cigarettes Quit Date: 02/12/79 Tobacco: How many years used: 5 Quit status: quit date established Second Hand Exposure: Yes Smoking risk assessment performed?: Yes Alcohol Intake: current Alcohol Intake frequency: a few times a month Alcohol type: beer and wine Drug use: Never Substance use type: does not use Adopted: No Caregiver/Support person: No Foster care: No Household members: spouse and other Details: Grandchildren Housing: house Number of Children: 2 number of grandchildren: 5 Communication Needs: None Education Level: college Do you need help understanding health information?: Rarely current occupation: Works as a travel advisor. Pets and animals: No Sexually active: Yes Do you think of yourself as: straight/heterosexual Current gender identity: female What is your relationship status?: How often do you talk on the phone with friends or family?: three or more times per week How often do you get together with friends or relatives?: once per week Do you belong to any clubs or organized social groups?: yes Panel score (0-1 are the most socially isolated patients): 3 What type of physical activity do you participate in: other Details: bowling,climbing stairs Duration: > 90 minutes/day Frequency: 1-2 times per week Amanda/Sikh: Judaism Special amanda needs: No Seatbelt use: always Helmet use: Yes Helmet use: always Drive intox or ride w/intox certified driver examiner: No Working smoke detector in home: Yes Carbon monox detector in home: Yes Firearms in home: No Do you feel safe at home: Yes Do you feel safe in your relationship?: Yes Victim of physical abuse: No Victim of emotional abuse: No Victim of sexual abuse: No Discharge Plan Disposition Patient Disposition: Home Condition: Good Discharge Details Clinical Impression: Hyperthyroidism, Heart palpitations Primary Care Provider: Nader Pathak ED Provider: Colleen Lane Home Meds and New Rx's Prescriptions: New Eliquis 5 mg tablet 10 mg PO BID Qty: 28 0RF Continued amitriptyline 50 mg tablet 50 mg PO QHS Qty: 90 3RF Discharge Instructions Instructions: Heart Palpitations (ED), Hyperthyroidism (ED), Blood Thinners (ED) Additional Instructions: Call your primary care doctor today to schedule an appointment within the next 3 days to follow up on your visit here. You will need to discuss: 1. Your blood thinning medication. 2. Your possible blood clot and imaging to evaluate this. 3. Your thyroid levels. Take the eliquis twice a day until you are able to determine whether or not you have a blood clot. If you run out before this, call your primary care doctor immediately- it is very important not to miss a dose Return to the emergency department for new or worsening symptoms including: fever, vomiting, shortness of breath, chest pain, pain when you breath, feeling like you are going to pass out, or if you have any other concerns. Referrals: Nader Pathak NP [Primary Care Provider] - Discharge Data Discharge Date/Time-TO BE ENTERED AT DEPARTURE: 03/27/23 17:32
[2023-03-27 15:15] LABS: Absolute Basophil Count 0.03 10^3/uL (0.0-0.2); Absolute Eosinophil Count 0.08 10^3/uL (0.0-0.7); Absolute Lymphocyte Count 1.69 10^3/uL (1.2-3.4); Absolute Monocyte Count 0.66 10^3/uL (0.1-0.8); Absolute Neutrophil Count 1.49 10^3/uL (1.2-6.7); Basophils % 0.8; HCT 36.1 % (36.0-46.0); Lymphocytes % 42.8; MCH 30.1 pg (27.0-33.0); MCHC 33.2 % (32.0-36.0); MCV 91 fL (80-95); MPV 11.2 fL (8.0-11.0); Monocytes % 16.7; Neutrophils % 37.7; Platelet Count 230 10^3/uL (130-400); RBC 3.99 10^6/uL (3.93-5.22); RDW 11.2 % (11.7-14.6); RDW-SD 37.2 fL; WBC 3.95 10^3/uL (4.4-10.8)
[2023-03-27 15:45] LABS: ALT 37 U/L (14-59); AST 20 U/L (15-37); Alkaline Phosphatase 63 U/L (46-116); Anion Gap 7.6 mmol/L (3-11); BUN 16 mg/dL (7-18); Bilirubin, Total 0.3 mg/dL (0.2-1.0); CO2 29.4 mmol/L (21.0-32.0); CREATININE 0.6 mg/dL (0.55-1.02); Calcium 9.5 mg/dL (8.5-10.1); Chloride 105 mmol/L (98-107); Estimated GFR 98.93 (mL/min/1.73m2); Glucose 106 mg/dL (74-106); Potassium 4.2 mmol/L (3.5-5.1); Sodium 142 mmol/L (136-145); Total Protein 7.2 g/dL (6.4-8.2); Troponin I < 50 ng/L (< or =60)
[2023-03-27 15:49] LABS: TSH (W/Ref FT4) < 0.01 uIU/mL (0.36-3.74)
[2023-03-27 15:58] LABS: D-Dimer 3067 ng/mlFEU (<500)
[2023-03-27 16:17] LABS: FREE T4 3.81 ng/dL (0.76-1.46)
[2023-03-27] MEDS: Apixaban 5 MG TAB 10 MG PO (16:55)
--- NOTE | 2023-03-27 17:11 | NUR.NOTE ---
Referral sent to PCP ABIEL kendrick by the end of the week for follow up from ED visit.Nursing Note:
== END 2023-03-27 17:32 | disposition home or self-care (01) ==
PROVIDERS: Emergency Provider Student in an Organized Health Care Education/Training Program; PCP Nurse Practitioner Family
DX: R00.2 Palpitations (principal); E03.9 Hypothyroidism, unspecified; R00.0 Tachycardia, unspecified; Z87.891 Personal history of nicotine dependence
CPT/HCPCS: 80053; 93005; 99284; 84439; 84443; 84484; 85025; 85379; 93010

== ENCOUNTER → 2023-03-29 03:18 | Outpatient (CLI) | payer MEDICARE, SELFPAY ==
--- NOTE | 2023-03-29 07:30 | DI.RAD_ITS ---
Exam(s) XR CHEST 2V PA LATERAL EXAM: XR CHEST 2V PA LATERAL CLINICAL HISTORY: palpitations, elev d-dimer,r00.2,r79.89 TECHNIQUE: 2D digital imaging was performed. COMPARISON: CR XR CHEST 2V PA LATERAL from 07/01/2019 FINDINGS: HEART: Normal size. Aorta: Not dilated. PULMONARY VASCULATURE: Normal. LUNGS: Clear. PLEURAL SPACE: No pleural effusion or pneumothorax. BONE:Scoliosis again noted. Soft tissues: Unremarkable. IMPRESSION: No acute abnormality. DATA REPOSITORY: RADIATION DOSE DELIVERED:
--- NOTE | 2023-03-29 07:30 | DI.NM_ITS ---
Exam(s) NM LUNG SCAN VENT PERF GRP EXAM: NM LUNG SCAN VENT PERF GRP CLINICAL HISTORY: elev d-dimer,palpitations,r00.2. TECHNIQUE: Injected Dose: Ventilation: 33.9 mCi Tc-99m DTPA via inhalation Perfusion: 4.5 mCi Tc-99m MAA via IV COMPARISON: CR XR CHEST 2V PA LATERAL from 03/29/2023 FINDINGS: Chest X-Ray: Clear lungs. Perfusion: Normal. Ventilation:Normal IMPRESSION: 1. Normal VQ examination. . . . Modified PIOPED II criteria Probability Criteria High Two or more segments of V/Q mismatch Low Normal Perfusion, Non segmental perfusion abnormalitie s, pleural effusion in at least 1/3 of pleural cavity with no other defect Radiograph/perfusion matched defect in mid to upper lung confined to segment, one to three small segmental perfusion defects (<25% of segment) Perfusion defect smaller than corresponding radiogra phic lesion. Intermediate All other findings DATA REPOSITORY:
== END ==
PROVIDERS: PCP Nurse Practitioner Family; Visit Provider Family Medicine
DX: R79.89 Other specified abnormal findings of blood chemistry (principal); R00.2 Palpitations
CPT/HCPCS: 78582; 71046

== ENCOUNTER 2023-04-02 04:54 | Outpatient (CLI) | payer MEDICARE, SELFPAY ==
[2023-04-03 17:43] LABS: T3, Total 542 ng/dL (97-169)
[2023-04-03 19:07] LABS: Thyroglobulin Antibody 243 U/mL (<=60)
[2023-04-06 17:20] LABS: Thyroid Stimulating Immunoglob 3.1 TSI index (<=1.3)
== END 2023-04-02 04:55 | disposition home or self-care (01) ==
LOC: LBO 04:54
PROVIDERS: PCP Nurse Practitioner Family; Visit Provider Family Medicine
DX: E05.90 Thyrotoxicosis, unspecified without thyrotoxic crisis or storm (principal)
CPT/HCPCS: 36415; 84445; 84480; 86800

== ENCOUNTER → 2023-04-19 02:14 | Outpatient (CLI) | payer MEDICARE, SELFPAY ==
--- NOTE | 2023-04-19 14:37 | DI.US_ITS ---
Exam(s) US THYROID EXAM: US THYROID CLINICAL HISTORY: hyperthyroidism, E05.90. TECHNIQUE: Ultrasound thyroid performed using standard protocol. COMPARISON: US PELVIS TRANSVAG from 07/01/2012 FINDINGS: Both thyroid lobes are upper normal size, as is the isthmus. There no discrete nodules in the thyroi d gland, however, the echotexture of the gland is diffusely heterogeneous. In addition, the entire g land is hyperemic. RIGHT THYROID LOBE: Measures 1.8 cm AP x 1.6 cm wide x 5.9 cm craniocaudal ISTHMUS: Normal thickness. There are no nodules in the isthmus. LEFT THYROID LOBE: Measures 2.1 cm AP x 1.7 wide x 5.1 cm craniocaudal LYMPH NODES: Small benign-appearing lymph nodes are noted in both sides of the neck. Probably reacti ve. IMPRESSION: Diffusely hyperemic thyroid gland with diffuse heterogeneous echotexture and no discrete nodules evid ent. Findings are consistent with thyroiditis. DATA REPOSITORY:
== END ==
PROVIDERS: PCP Nurse Practitioner Family; Visit Provider Nurse Practitioner Family
DX: E05.90 Thyrotoxicosis, unspecified without thyrotoxic crisis or storm (principal)
CPT/HCPCS: 76536

== ENCOUNTER 2023-05-01 04:31 | Outpatient (CLI) | payer MEDICARE, SELFPAY ==
[2023-05-01 09:43] LABS: FREE T4 1.92 ng/dL (0.76-1.46); TSH < 0.01 uIU/Ml (0.36-3.74)
[2023-05-01 17:40] LABS: T3, Total 462 ng/dL (97-169)
== END 2023-05-01 04:32 | disposition home or self-care (01) ==
PROVIDERS: PCP Nurse Practitioner Family; Visit Provider Nurse Practitioner Family
DX: E05.90 Thyrotoxicosis, unspecified without thyrotoxic crisis or storm (principal)
CPT/HCPCS: 36415; 84439; 84443; 84480

== ENCOUNTER 2023-06-15 05:07 | Outpatient (CLI) | payer MEDICARE, SELFPAY ==
[2023-06-15 09:33] LABS: FREE T4 0.98 ng/dL (0.76-1.46); TSH < 0.01 uIU/Ml (0.36-3.74)
[2023-06-15 18:09] LABS: T3, Total 251 ng/dL (97-169)
== END 2023-06-15 05:08 | disposition home or self-care (01) ==
PROVIDERS: PCP Nurse Practitioner Family; Visit Provider Student in an Organized Health Care Education/Training Program
DX: E05.90 Thyrotoxicosis, unspecified without thyrotoxic crisis or storm (principal)
CPT/HCPCS: 36415; 84439; 84443; 84480

== ENCOUNTER 2023-07-19 05:13 | Outpatient (CLI) | payer MEDICARE, SELFPAY ==
[2023-07-19 11:00] LABS: FREE T4 0.51 ng/dL (0.76-1.46); TSH 2.14 uIU/Ml (0.36-3.74)
[2023-07-19 17:42] LABS: T3, Total 176 ng/dL (97-169)
== END 2023-07-19 05:14 | disposition home or self-care (01) ==
PROVIDERS: Student in an Organized Health Care Education/Training Program; PCP Nurse Practitioner Family; Visit Provider Nurse Practitioner Family
DX: E05.90 Thyrotoxicosis, unspecified without thyrotoxic crisis or storm (principal)
CPT/HCPCS: 36415; 84439; 84443; 84480

== ENCOUNTER 2023-09-05 09:00 | Emergency (ER) | payer MEDICARE, SELFPAY ==
[2023-09-05] VITALS (47 sets, daily range): BP systolic 109–180; BP diastolic 42–134; PULSE 51–96; RESP 9–27; TEMP 36.3; O2SAT 95–100
--- NOTE | 2023-09-05 09:27 | ED.GENADUL_ITS ---
Discharge Plan Disposition Patient Disposition: Home Condition: Stable Discharge Details Clinical Impression: Colitis, Lower GI bleed Primary Care Provider: Nader Pathak ED Provider: Lynnette Murdock Home Meds and New Rx's Prescriptions: New ciprofloxacin HCl [Cipro] 500 mg tablet 500 mg PO BID 10 Days Qty: 20 0RF Rx Instructions: Take one tablet by mouth twice daily for the next 10 days No Action amitriptyline 50 mg tablet 50 mg PO QHS Qty: 90 3RF methimazole 5 mg tablet 5 mg PO DAILY Qty: 30 1RF Patient Comments: Takes 10 mg QOD and 15 mg the opposite days atenolol 50 mg tablet 25 mg PO DAILY Rx Instructions: TAKE ONE TABLET BY MOUTH EVERY DAY Discharge Instructions Instructions: Colitis, Bloody Stools, Adult ED Additional Instructions: Please follow-up with general surgery for colonoscopy within the next 3 to 5 days. Return to the ER sooner for any worsening rectal bleeding more than 3 times daily, worsening dizziness lightheadedness, fever or chills feeling as if you are going to faint or any concerns. Stay away from anything fried fatty spicy or dairy. Do a brat diet including bananas rice apples toast. Stay away from alcohol. Follow up with general surgery/primary care provider in 3-5 days. Return to ED sooner if any worsening or concerns. Take the antibiotic twice daily as directed. At this time your stool samples are pending we will call you for any need for change in your antibiotic or medication regimen. Referrals: Mingo Hernandez MD [ [facility] STAFF PHYSICIAN] - 3 days (Colitis, GI bleeding) Discharge Data Discharge Date/Time-TO BE ENTERED AT DEPARTURE: 09/05/23 14:41 HPI General Mode of arrival: ambulatory . Date/Time Provider Initiated Documentation: 09/05/23 09:05 . Limitations to Documentation: no limitations . Information obtained by: patient, RN notes reviewed and old records reviewed . HPI Narrative: 67-year-old female presents to the ER with chief complaint of dark red liquid stools which began this morning around 4 AM. Patient just returned from a cruise in the [facility] on Sunday. She reports that awoke with abdominal cramping loose stools x 3 with dark blood. She reports some lower abdominal cramping. Denies any fever chills does endorse some dizziness lightheadedness upon standing. She does appear slightly pale. She does state that she has had same symptoms approximately a year ago after drinking some contaminated water with parasite. She denies taking any blood thinners no aspirin. She does have a past medical history of hypertension, depression, postmenopausal bleeding, migraines. Related Data Home Medications ?Medication ?Instructions ?Recorded ?Confirmed amitriptyline 50 mg tablet 50 mg PO QHS #90 tabs 12/09/22 09/05/23 methimazole 5 mg tablet 5 mg PO DAILY #30 tabs 03/28/23 09/05/23 atenolol 50 mg tablet 25 mg PO DAILY 09/05/23 09/05/23 ciprofloxacin HCl 500 mg tablet 500 mg PO BID Colitis 10 days #09/05/23 (Cipro) tabs Previous Rx's ?Medication ?Instructions ?Recorded amitriptyline 50 mg tablet 50 mg PO QHS #90 tabs 12/09/22 methimazole 5 mg tablet 5 mg PO DAILY #30 tabs 03/28/23 ciprofloxacin HCl 500 mg tablet 500 mg PO BID Colitis 10 days #09/05/23 (Cipro) tabs Allergies Allergy/AdvReac Type Severity Reaction Status Date / Time acetaminophen (From Tylenol) AdvReac Severe liver Verified 09/05/23 09:06 issues IV DYE Allergy Severe Swelling/Ed Uncoded 09/05/23 09:06 aleah General Stated Complaint: GI Bleed ROSSY: 3 Review of Systems All systems reviewed & are unremarkable except as noted in HPI and below Exam Narrative Exam Narrative: Constitutional: Alert and oriented x3. Appears stated age. Overweight body habitus. Slightly pale Head: Normocephalic, no trauma. Eyes: Pupils PERRL, Red reflex noted, EOM's intact. Eyelids symmetrical without lesions, discharge, or swelling. ENT: Bilateral TM's WNL, External ear normal to inspection, no mastoid TTP, swelling, or erythema, Nasal turbinates WNL, no nasal discharge. Normal dentition, Posterior pharynx WNL, no exudate. Chest: RRR, Normal S1, S2, distal pulses intact. Resp: Lungs clear to auscultation bilaterally, no wheezes, rales, or rhonchi. Abdomen: Soft, non-distended, Normoactive bowel sounds all 4 quads. Nontender to palpation all 4 quadrants. Digital rectal exam performed, hemorrhoids noted flesh-colored, not engorged, gross blood obtained, guaiac positive. No stool or masses palpated in the rectal vault. Musculoskeletal: Normal gait, Moves all 4 extremities without difficulty. Skin: No suspicious rashes or lesions. Capillary refill less than 2 sec. Neurologic: Cranial nerves II-XII intact. Alert and oriented x 3. Motor: No deficits noted. Sensory: Intact bilaterally all 4 extremities. Hematologic/Lymphatic: No ecchymosis, no lymphadenopathy. Course Vital Signs Vital signs: Vital Signs Temperature 36.3 C L 09/05/23 09:03 Pulse 69 09/05/23 09:03 Respiratory Rate 18 09/05/23 09:03 Blood Pressure 117/83 09/05/23 09:03 Pulse Oximetry 98 09/05/23 09:03 Temperature 36.3 C L 09/05/23 09:03 Temperature Source Temporal Artery Scan 09/05/23 09:03 Pulse 69 09/05/23 09:03 Respiratory Rate 18 09/05/23 09:03 Respiratory Effort Normal 09/05/23 09:05 Blood Pressure 117/83 09/05/23 09:03 Blood Pressure Position Sitting 09/05/23 09:03 Pulse Oximetry 98 09/05/23 09:03 Oxygen Delivery Method Room Air 09/05/23 09:03 Oxygen Flow Rate 0 09/05/23 09:03 Pain Level 1 09/05/23 09:03 Procedures Stool Hemoccult Procedural Steps Taken: stool placed in appropriate test area, developer placed on stool and control areas and controls appropriately positive and negative Hemoccult result: positive Additional Comments: LUCY performed, Flesh-colored, soft hemorrhoids noted at approximately 7:00, no external bleeding visualized. Grossly bloody stool remnants noted. No stool palpated in the rectal vault. Medical Decision Making 67-year-old female presents to the ER with chief complaint of dark red liquid stools which began this morning around 4 AM. Patient just returned from a cruise in the [facility] on Sunday. She reports that awoke with abdominal cramping loose stools x 3 with dark blood. She reports some lower abdominal cramping. Denies any fever chills does endorse some dizziness lightheadedness upon standing. She does appear slightly pale. She does state that she has had same symptoms approximately a year ago after drinking some contaminated water with parasite. She denies taking any blood thinners no aspirin. She does have a past medical history of hypertension, depression, postmenopausal bleeding, migraines. Notified by TIFFANIE patient does have an allergy listed to IV contrast dye she reports that a long time ago she did have a head CT with some facial swelling after receiving IV contrast. She has not had IV contrast since she did have a CT abdomen pelvis in 2018 with oral contrast. After discussion and shared decision-making she opted for CT without contrast at this time. I did discuss the risks and benefits with her she verbalized understanding. Diagnostic imaging notified. CT change to abdomen pelvis without contrast. CBC largely within normal limits hemoglobin 14 hematocrit 42.5 PT/INR within normal limits, creatinine is slightly elevated at 1.3 GFR is 45.3 this is new for her, normal saline 300 cc an hour ordered, glucose 131 alk phos slightly elevated at 147 initial troponin within normal limits, lipase 53 stool is pending at this time. Patient informed me that she has had 3 bowel movements since being here which were all dark and bloody, will do orthostatics, give Cipro [address] shows colitis. Discussed home care and follow-up care will refer patient to general surgery for colonoscopy discussed strict return instructions. Patient denies any dizziness lightheadedness orthostatics within normal limits. Repeat CBC within normal limits, at this time I do feel it is safe for patient to be discharged home due to hemodynamically stable and no need for blood transfusion at this time. This text was generated using Bev[employer] dictation system, please disregard any oddities of phrase or misspellings. Medical Records Medical records reviewed: Yes I reviewed the patient's medical records. Imaging Data Radiologic Study: Imaging: CT Scan Radiologist's impression: EXAM: CT ABDOMEN PELVIS WO CLINICAL HISTORY: Abdominal pain, GI bleeding. TECHNIQUE: Imaging Protocol: Axial computed tomography images with coronal and sagittal reformatted images were created and reviewed. COMPARISON: CT CT ABDOMEN PELVIS WO from 12/31/2017 FINDINGS: Contrast was not administered secondary to the patient's contrast allergy. ABDOMEN: Lung Bases: There is a small hiatal hernia. Liver: Normal density. No measurable mass. Gallbladder and biliary tract: No radiodense calculus or biliary ductal dilation. Pancreas: Normal density, no abnormal calcifications or inflammatory process. Spleen: Normal. Kidneys: Normal size, contour and axis.No radiodense stones or obstructive uropathy. No masses seen. Adrenal glands: No mass is seen. Lymph nodes: Within normal limits. Abdominal Aorta: Abdominal portion non-dilated. Atherosclerotic calcification is present. PELVIS: Bladder:Symmetric distention, no gross wall thickening. Bowel: There is no evidence of obstruction. There are few diverticula seen in the sigmoid colon. There is mild bowel wall thickening seen in the descending colon and proximal sigmoid colon with very mild inflammation in the surrounding soft tissues. Infectious or inflammatory colitis should be considered. No evidence of appendicitis. Peritoneal cavity: No ascites, collection or mesenteric inflammatory response. No free air. Reproductive organs: Unremarkable as visualized. Bones: Within normal limits. There is a left convex thoracolumbar scoliosis. Soft Tissues: There is a small fat containing umbilical hernia. IMPRESSION: Mild wall thickening in the descending and sigmoid colon suggesting infectious or inflammatory colitis. Lab Data Lab results reviewed: Yes I reviewed the patient's lab results. Labs: Laboratory Tests Range/Units 09/05/23 09/05/23 09/05/23 09:10 09:42 10:40 WBC (4.4-10.8) 10^3/uL 7.41 RBC (3.93-5.22) 10^6/uL 4.41 Hgb (11.2-15.7) g/dL 14.0 Hct (36.0-46.0) % 42.5 MCV (80-95) fL 96 H MCH (27.0-33.0) pg 31.7 MCHC (32.0-36.0) % 32.9 RDW (11.7-14.6) % 13.6 Plt Count (130-400) 10^3/uL 193 MPV (8.0-11.0) fL 11.0 Immature Gran % % 0.4 Neutrophils % % 75.7 Lymphocytes % % 17.0 Monocytes % % 5.5 Eosinophils % % 0.7 Basophils % % 0.7 Nucleated RBC % (0.0-0.3) % 0.0 Absolute Neutrophils (1.2-6.7) 10^3/uL 5.61 Absolute Lymphocytes (1.2-3.4) 10^3/uL 1.26 Absolute Monocytes (0.1-0.8) 10^3/uL 0.41 Absolute Eosinophils (0.0-0.7) 10^3/uL 0.05 Absolute Basophils (0.0-0.2) 10^3/uL 0.05 PT (9.1-11.1) sec 10.1 INR (0.9-1.1) 1.0 Sodium (136-145) mmol/L 139 Potassium (3.5-5.1) mmol/L 4.3 Chloride (98-107) mmol/L 103 Carbon Dioxide (21.0-32.0) mmol/L 31.1 Anion Gap (3-11) mmol/L 4.9 BUN (7-18) mg/dL 17 Creatinine (0.55-1.02) mg/dL 1.3 H Est GFR (CKD-EPI 2020) (mL/min/1.73m2) 45.35 Glucose (74-106) mg/dL 131 H Calcium (8.5-10.1) mg/dL 9.0 Magnesium (1.8-2.4) mg/dL 2.0 Total Bilirubin (0.2-1.0) mg/dL 0.36 AST (15-37) U/L 19 ALT (14-59) U/L 30 Alkaline Phosphatase (46-116) U/L 147 H Troponin I (< or =60) ng/L < 50 Total Protein (6.4-8.2) g/dL 8.1 Albumin (3.4-5.0) g/dL 3.6 Lipase (16-77) U/L 53 Stool Description Cancelled Stool Campylobacter PCR Cancelled Stool Salmonella PCR Cancelled Stool Shigella PCR Cancelled Stool Ova & Parasites Cancelled COVID-19 Source Nasopharynx SARS-CoV-2 (PCR) (Negative) Negative Cryptosporidium/Giardia Cancelled Influenza Type A (PCR) (Negative) Negative Influenza Type B (PCR) (Negative) Negative RSV (PCR) (Negative) Negative Shiga Toxin (PCR) Cancelled ABO/Rh A Positive Antibody Screen NEGATIVE Range/Units 09/05/23 11:45 WBC (4.4-10.8) 10^3/uL RBC (3.93-5.22) 10^6/uL Hgb (11.2-15.7) g/dL Hct (36.0-46.0) % MCV (80-95) fL MCH (27.0-33.0) pg MCHC (32.0-36.0) % RDW (11.7-14.6) % Plt Count (130-400) 10^3/uL MPV (8.0-11.0) fL Immature Gran % % Neutrophils % % Lymphocytes % % Monocytes % % Eosinophils % % Basophils % % Nucleated RBC % (0.0-0.3) % Absolute Neutrophils (1.2-6.7) 10^3/uL Absolute Lymphocytes (1.2-3.4) 10^3/uL Absolute Monocytes (0.1-0.8) 10^3/uL Absolute Eosinophils (0.0-0.7) 10^3/uL Absolute Basophils (0.0-0.2) 10^3/uL PT (9.1-11.1) sec INR (0.9-1.1) Sodium (136-145) mmol/L Potassium (3.5-5.1) mmol/L Chloride (98-107) mmol/L Carbon Dioxide (21.0-32.0) mmol/L Anion Gap (3-11) mmol/L BUN (7-18) mg/dL Creatinine (0.55-1.02) mg/dL Est GFR (CKD-EPI 2020) (mL/min/1.73m2) Glucose (74-106) mg/dL Calcium (8.5-10.1) mg/dL Magnesium (1.8-2.4) mg/dL Total Bilirubin (0.2-1.0) mg/dL AST (15-37) U/L ALT (14-59) U/L Alkaline Phosphatase (46-116) U/L Troponin I (< or =60) ng/L < 50 Total Protein (6.4-8.2) g/dL Albumin (3.4-5.0) g/dL Lipase (16-77) U/L Stool Description Stool Campylobacter PCR Stool Salmonella PCR Stool Shigella PCR Stool Ova & Parasites COVID-19 Source SARS-CoV-2 (PCR) (Negative) Cryptosporidium/Giardia Influenza Type A (PCR) (Negative) Influenza Type B (PCR) (Negative) RSV (PCR) (Negative) Shiga Toxin (PCR) ABO/Rh Antibody Screen Quality:SDOH Health Related Social Needs: No Data to Display PFSH All Active Problems (Updated 09/05/23 @ 13:10 by Lynnette Murdock NP) Lower GI bleed (Acute) Colitis (Acute) Elevated d-dimer (Acute) Tinea versicolor (Acute) Easy bruising (Acute) Family history of coronary artery disease in father (Acute) at age 60 Dysphagia (Acute) GERD (gastroesophageal reflux disease) (Chronic 10/01/14) managed by adjusting diet. Medical History Depressive disorder managed with amitriptyline Heart palpitations (10/01/14) event monitor negative in 2014 Postmenopausal bleeding (06/24/12) occurred once, no procedures. Panic disorder Migraine with aura managed with amitriptyline Surgical History Colonoscopy - IV Sedation (08/30/15) Bunionectomy (07/21/15) Left DR. LY ALSO LEFT 2ND RAY HAMMERTOE CORRECTION Appendectomy Family History (Updated 03/27/23 @ 14:01 by Zohra Gross RN) Mother , 62 Diabetes Lung cancer Father , 61 Diabetes Heart disease Hyperlipidemia Brother Diabetes Maternal Grandfather , 70s Diabetes Brain cancer Lung cancer Paternal Grandfather , 70s Liver cancer Maternal Grandmother , 66 Heart disease HEART VALVE REPAIR Paternal Grandmother , 89 No problems noted. Son Depression Fsonn-Wdepscdzb-Updkc syndrome Daughter Depression Sister , 3 days old No problems noted. Social History (Updated 12/11/22 @ 07:57 by Mony De Dios) Smoking/Tobacco Use Status: Former Tobacco Use tobacco type: cigarettes Quit Date: 02/12/79 Tobacco: How many years used: 5 Quit status: quit date established Second Hand Exposure: Yes Smoking risk assessment performed?: Yes Alcohol Intake: current Alcohol Intake frequency: a few times a month Alcohol type: beer and wine Drug use: Never Substance use type: does not use Adopted: No Caregiver/Support person: No Foster care: No Household members: spouse and other Details: Grandchildren Housing: house Number of Children: 2 number of grandchildren: 5 Communication Needs: None Education Level: college Do you need help understanding health information?: Rarely current occupation: Works as a travel advisor. Pets and animals: No Sexually active: Yes Do you think of yourself as: straight/heterosexual Current gender identity: female What is your relationship status?: How often do you talk on the phone with friends or family?: three or more times per week How often do you get together with friends or relatives?: once per week Do you belong to any clubs or organized social groups?: yes Panel score (0-1 are the most socially isolated patients): 3 What type of physical activity do you participate in: other Details: bowling,climbing stairs Duration: > 90 minutes/day Frequency: 1-2 times per week Amanda/Anabaptist: Moravian Special amanda needs: No Seatbelt use: always Helmet use: Yes Helmet use: always Drive intox or ride w/intox taxicab driver: No Working smoke detector in home: Yes Carbon monox detector in home: Yes Firearms in home: No Do you feel safe at home: Yes Do you feel safe in your relationship?: Yes Victim of physical abuse: No Victim of emotional abuse: No Victim of sexual abuse: No PAWSS Have you Been Recently Intoxicated or Drunk Within the Last 30 days?: No Have you Ever Experienced Previous Episodes of Alcohol Withdrawal?: No Have you ever Experienced Withdrawal Seizures?: No Have you ever Experienced Delirium Tremens(DT)s?: No Have you ever undergone Alcohol Rehabilitation Treatment (i.e, inpt ot outpatient treatment programs)?: No Have you ever Experienced Blackouts?: No Have you ever Combined Alcohol with other Downers within the last 90 days?: No Have you ever Combined Alcohol with any other Substance of Abuse during the last 90 days?: No Result: 0
[2023-09-05 09:32] LABS: Abs Immature Grans 0.03 10^3/uL (0.0-0.06); Absolute Basophil Count 0.05 10^3/uL (0.0-0.2); Absolute Eosinophil Count 0.05 10^3/uL (0.0-0.7); Absolute Lymphocyte Count 1.26 10^3/uL (1.2-3.4); Absolute Monocyte Count 0.41 10^3/uL (0.1-0.8); Absolute Neutrophil Count 5.61 10^3/uL (1.2-6.7); Basophils % 0.7 %; Eosinophils % 0.7 %; HCT 42.5 % (36.0-46.0); Immature Grans % 0.4 %; MCH 31.7 pg (27.0-33.0); MCHC 32.9 % (32.0-36.0); MCV 96 fL (80-95); Monocytes % 5.5 %; Neutrophils % 75.7 %; Platelet Count 193 10^3/uL (130-400); RBC 4.41 10^6/uL (3.93-5.22); RDW 13.6 % (11.7-14.6); WBC 7.41 10^3/uL (4.4-10.8)
[2023-09-05] MEDS: Pantoprazole 40 MG VIAL IVP (09:36)
[2023-09-05 09:37] LABS: Prothrombin Time 10.1 sec (9.1-11.1)
[2023-09-05] MEDS: Normal Saline Flush 10 ML SYR IVP ×2 (09:37→11:54)
[2023-09-05 09:49] LABS: Lipase 53 U/L (16-77)
[2023-09-05 09:55] LABS: ALT 30 U/L (14-59); AST 19 U/L (15-37); Albumin 3.6 g/dL (3.4-5.0); Alkaline Phosphatase 147 U/L (46-116); Anion Gap 4.9 mmol/L (3-11); BUN 17 mg/dL (7-18); Bilirubin, Total 0.36 mg/dL (0.2-1.0); CO2 31.1 mmol/L (21.0-32.0); CREATININE 1.3 mg/dL (0.55-1.02); Chloride 103 mmol/L (98-107); Estimated GFR 45.35 (mL/min/1.73m2); Glucose 131 mg/dL (74-106); Potassium 4.3 mmol/L (3.5-5.1); Sodium 139 mmol/L (136-145); Total Protein 8.1 g/dL (6.4-8.2)
[2023-09-05 09:58] LABS: Troponin I < 50 ng/L (< or =60)
[2023-09-05 11:38] LABS: COVID-19 PCR Negative (Negative); Influenza A PCR Negative (Negative); Influenza B PCR Negative (Negative); RSV PCR Negative (Negative)
[2023-09-05 11:42] LABS: Source Nasopharynx
--- NOTE | 2023-09-05 11:50 | DI.CT_ITS ---
Exam(s) CT ABDOMEN PELVIS WO EXAM: CT ABDOMEN PELVIS WO CLINICAL HISTORY: Abdominal pain, GI bleeding. TECHNIQUE: Imaging Protocol: Axial computed tomography images with coronal and sagittal reformatted images were created and reviewed. COMPARISON: CT CT ABDOMEN PELVIS WO from 12/31/2017 FINDINGS: Contrast was not administered secondary to the patient's contrast allergy. ABDOMEN: Lung Bases: There is a small hiatal hernia. Liver: Normal density. No measurable mass. Gallbladder and biliary tract: No radiodense calculus or biliary ductal dilation. Pancreas: Normal density, no abnormal calcifications or inflammatory process. Spleen: Normal. Kidneys: Normal size, contour and axis.No radiodense stones or obstructive uropathy. No masses seen. Adrenal glands: No mass is seen. Lymph nodes: Within normal limits. Abdominal Aorta: Abdominal portion non-dilated. Atherosclerotic calcification is present. PELVIS: Bladder:Symmetric distention, no gross wall thickening. Bowel: There is no evidence of obstruction. There are few diverticula seen in the sigmoid colon. Th ere is mild bowel wall thickening seen in the descending colon and proximal sigmoid colon with very m ild inflammation in the surrounding soft tissues. Infectious or inflammatory colitis should be consi dered. No evidence of appendicitis. Peritoneal cavity: No ascites, collection or mesenteric inflammatory response. No free air. Reproductive organs: Unremarkable as visualized. Bones: Within normal limits. There is a left convex thoracolumbar scoliosis. Soft Tissues: There is a small fat containing umbilical hernia. IMPRESSION: Mild wall thickening in the descending and sigmoid colon suggesting infectious or inflammatory coliti s. RADIATION DOSE DELIVERED: Total DLP DATA REPOSITORY: All CT scans at this facility are submitted to the National Radiology Data Registry (NRDR) Dose Index Registry (DIR) with the [employer] (A[employer]). RADIATION OPTIMIZATION: All CT scans at this facility use at least one of these dose optimization te chniques: automated exposure control; mA and/or kV adjustment per patient size (includes targeted exa ms where dose is matched to clinical indication); or iterative reconstruction.
[2023-09-05] MEDS: Normal Saline 1,000 ML 300 ML IV (11:54)
[2023-09-05 12:28] LABS: Troponin I < 50 ng/L (< or =60)
[2023-09-05] MEDS: Ciprofloxacin 500 MG TAB PO (13:39)
[2023-09-05 14:07] LABS: HCT 40.1 % (36.0-46.0); HGB 13.2 g/dL (11.2-15.7); MCH 31.5 pg (27.0-33.0); MCHC 32.9 % (32.0-36.0); MCV 96 fL (80-95); Platelet Count 197 10^3/uL (130-400); RBC 4.19 10^6/uL (3.93-5.22); RDW 13.5 % (11.7-14.6); WBC 8.51 10^3/uL (4.4-10.8)
[2023-09-06 13:45] LABS: Campylobacter PCR Negative (Negative); Salmonella PCR Negative (Negative); Shiga Toxin PCR Negative (Negative); Shigella/Enteroinvasive Ecoli Negative (Negative)
== END 2023-09-05 14:41 | disposition home or self-care (01) ==
LOC: ER 13:10 → RED 14:36
PROVIDERS: Emergency Provider Registered Nurse Emergency; PCP Nurse Practitioner Family
DX: R10.9 Unspecified abdominal pain (principal); K92.2 Gastrointestinal hemorrhage, unspecified; K52.9 Noninfective gastroenteritis and colitis, unspecified
CPT/HCPCS: 36415; 80053; 83690; 85027; 86850; 86900; 86901; 87329; 87505; 87637; 96361; 96374; 99284; 74176; 83735; 84484; 85025; 85610; 87177; 99283; J2470

== ENCOUNTER 2023-09-14 02:18 | Outpatient (CLI) | payer MEDICARE, SELFPAY ==
[2023-09-14 14:55] LABS: T4 4.1 ug/dL (4.7-13.3); TSH 55.44 uIU/Ml (0.36-3.74)
[2023-09-14 22:32] LABS: T3, Total 184 ng/dL (97-169)
== END 2023-09-14 02:19 | disposition home or self-care (01) ==
PROVIDERS: PCP Nurse Practitioner Family; Visit Provider Student in an Organized Health Care Education/Training Program
DX: K92.2 Gastrointestinal hemorrhage, unspecified (principal); E05.90 Thyrotoxicosis, unspecified without thyrotoxic crisis or storm
CPT/HCPCS: 36415; 84436; 84443; 84480; 87177

== ENCOUNTER 2024-07-28 08:32 | Outpatient (CLI) | payer MEDICARE, SELFPAY ==
[2024-07-28 13:10] LABS: FREE T4 1.15 ng/dL (0.76-1.46); TSH 0.03 uIU/mL (0.36-3.74)
[2024-07-28 13:24] LABS: T4 10.6 ug/dL (4.7-13.3)
[2024-07-28 22:44] LABS: T3, Total 224 ng/dL (97-169)
[2024-08-04 16:44] LABS: Thyroid Stimulating Immunoglob 1.6 TSI index (<=1.3)
== END 2024-07-28 08:33 | disposition home or self-care (01) ==
PROVIDERS: PCP Nurse Practitioner Family; Referring Provider Nurse Practitioner Family; Visit Provider Nurse Practitioner Family
DX: E05.00 Thyrotoxicosis with diffuse goiter without thyrotoxic crisis or storm (principal)
CPT/HCPCS: 36415; 84436; 84439; 84443; 84445; 84480

== ENCOUNTER 2025-01-05 10:52 | Outpatient (CLI) | payer MEDICARE, SELFPAY ==
[2025-01-05 14:30] LABS: T4 13.3 ug/dL (4.5-10.9)
[2025-01-05 14:53] LABS: TSH < 0.01 uIU/mL (0.55-4.78)
[2025-01-05 22:57] LABS: T3, Total 184 ng/dL (82-158)
== END 2025-01-05 10:53 | disposition home or self-care (01) ==
PROVIDERS: PCP Nurse Practitioner Family; Visit Provider Nurse Practitioner Family
DX: E05.00 Thyrotoxicosis with diffuse goiter without thyrotoxic crisis or storm (principal)
CPT/HCPCS: 36415; 84436; 84439; 84443; 84445; 84480